=== PATIENT | male | born 1965 | race Caucasian/White ===

== ENCOUNTER 2017-04-07 02:03 | Inpatient (IN) | payer OTHER ==
[~2017-04-07] VITALS: Ht 180.3 cm; Wt 114.8 kg
--- NOTE | 2017-04-07 16:12 | Admission Core Measures ---
Acute Coronary Syndrome (CM) ACS Core Measures Acute Coronary Syndrome Diagnosis No Congestive Heart Failure (NEW) CHF Core Measures Congestive Heart Failure Diagnosis No Cerebrovascular Accident (NEW) CVA Core Measures CVA/TIA Diagnosis No Venous Thromboembolism VTE Core Tye (View Protocol) VTE Risk Factors Surgery No Mechanical VTE Prophylaxis d/t N/A MechProphylax Ordered No VTE Pharm Prophylaxis d/t Bleeding (Active) Problem List As ranked by this Provider includes Assessment & Plan 1. Diverticulitis 2. History of low anterior resection of rectum HOME MEDS Home Med List No Known Home Medications
--- NOTE | 2017-04-07 16:23 | Operative Report ---
Operative/Inv Procedure Report Surgery Date: 04/07/17 Name of Procedure: 1. Laparoscopic low anterior resection 2. Rigid sigmoidoscopic evaluation of anastomotic integrity Pre-Operative Diagnosis: Recurrent diverticulitis of the sigmoid colon Post-Operative Diagnosis: Recurrent diverticulitis of the sigmoid colon Estimated Blood Loss: less than 50ml Surgeon/Documentation Specialist: Gil Jacobs Jr., DO Anesthesia: general endotracheal tube, block Monitors: Per routine Urine Output: Adequate Drains: None Specimens: Rectosigmoid Complications: None Condition: Good Operative Indication: This is a 51-year-old gentleman with a straight recurrent sigmoid diverticulitis. He has had CT confirmation of his disease and he has had colonoscopy which demonstrates the presence of diverticulosis and excludes other major colonic pathology. Operative/Procedure Note Note: On the day before his operation patient did a bowel prep at home including oral antibiotics and oral laxatives. In the morning before his operation he drinks 12 inches of apple juice prior to coming to the hospital per my direction. He presented to [facility] and in the holding area he was given oral and alvimopan. He was taken into the operating room where he received IV antibiotics. He was placed in the supine position on the operating room table he underwent induction of general anesthesia placement of endotracheal tube. A Mclean catheter was placed and the patient then underwent bilateral TAP blocks performed by the anesthesiologist. He was then converted to lithotomy position in the [facility] with his right arm tucked. The abdomen was prepped and draped in usual fashion. We gained access to the abdominal cavity using Griffith technique. Griffith port was placed just above the umbilicus in the midline. Next the abdomen was insufflated to 15 mmHg. Upper scopic expiration of the abdominal cavity was carried out. I could see the diseased segment of sigmoid , was abnormally adherent to the anterior lateral wall on the left. It was hyperemic with thickened mesocolon. Next the other laparoscopic ports were placed under direct visualization of the laparoscope including: A right lower quadrant 12 mm VersaStep dilating port, a suprapubic 5 mm port and a right upper quadrant 5 mm port. Next the patient was placed in Trendelenburg right side down and I began my dissection. I started by dissecting the abnormal adhesions between the sigmoid colon and the anterior lateral sidewall. This was done primarily with electrocautery. I was able to enter a nice clean plane which I continued to dissect until I identified the ureter on the left side. At this point the colon was grasped and pulled anteriorly towards the abdominal wall. I incised the peritoneum at the level sacral promontory to the right of the rectosigmoid. Here I entered the retrorectal avascular space. I continued to bluntly dissect the space until I reached the junction of the upper and middle third of the rectum. Next I dissected in the more medial to lateral direction until I entered my other dissection plane and the ureter was easily visible on the left. At this point I began dividing the mesentery. As this was not colon cancer case I divided the mesentery more distally. The mesentery was divided with the LigaSure. I was able to in visually identify 2 major mesenteric arteries and skeletonize them. After skeletonizing them they were ligated and divided with the LigaSure device. At this point I had adequate mesentery to be above the disease. I took down the white line of Toldt and the retro-colic attachments to Gerota's fascia partly with blunt dissection and partly with the LigaSure until I reached the splenic flexure. I had enough length I did not need to mobilize flexure platelet. I chose my distal site of transection on the rectosigmoid. The mesentery was cleared here using the LigaSure device. I identified the superior hemorrhoidal artery skeletonized and divided with the LigaSure device. Once the rectal wall was completely exposed an Endo MARGUERITE stapler was used to divide the bowel. This was a purple loaded 60 mm stapler. At this point the transected bowel was grasped with a locking grasper. The pneumoperitoneum was let down. The umbilical port was extended to 5 cm. Wound protector was placed through this port. I was able to easily extract the bowel through this fascial defect. I chose my proximal site of transection. The mesentery was cleared here and divided with the LigaSure. Once the wall of the colon was exposed pedicle Was placed across the bowel and the bowel was divided with the scalpel proximal to the clamp. The specimen was removed from the field. The open end of the colon was grasped with Allis clamps and the handsewn pursestring was performed with 2-0 Prolene suture. I chose a 28 EEA stapler for the anastomosis. The anvil of the EEA stapler was placed into the lumen of the bowel and the pursestring was tied snugly around the PEG of the anvil. The bowel was reduced back into the abdominal cavity. The fascia was closed with 0 PDS suture. An additional 5 mm port was placed in the epigastrium and the abdomen was reinsufflated to 15 mmHg. The patient was placed in Trendelenburg swept the small bowel out of the pelvis. The EEA sizers and then the EEA stapler passed transanally. The stapler was in the appropriate position the spike was advanced and the 2 ends of the stapler were laparoscopically mated. The stapler was completely closed and allowed to settle for 30 seconds. The stapler was armed and fired, opened and retrieved. We had 2 excellent donuts on stapling device. Rigid sigmoidoscopy was performed after the pelvis was filled with sterile saline. The bowel insufflated nicely and there was no leaking at the staple line. At this point I noticed a hematoma on the mesial rectum. This was a small hematoma right at the most superior edge of the mesial rectum. For 5 minutes this was observed and was not expanding and there was no active bleeding. Copiously irrigated the pelvis multiple times while observe this hematoma. I believe the mesentery store slightly when when the stapler was passed to the end of the rectal stump. At this point is convinced the hematoma was not expanding so the procedure was concluded. Ports were removed under direct visualization. The lap scopic ports were closed with subcuticular 4-0 Monocryl and then skin glue. The midline extraction port was copiously irrigated with sterile saline. The skin itself was closed with skin sunshine. The abdomen was cleansed and dried and then a dry sterile dressing was applied over the extraction site. The patient was converted back to supine. The patient tolerated the procedure well was taken to recovery area in good condition. At the end this operational needle sponges and instruments were accounted for. Discharge Disposition: Same Day Admissions
--- NOTE | 2017-04-07 17:32 | PN- General Surgery ---
Master Vazquez 04/07/17 1729: Subjective Subjective: POST-OP NOTE No complaints in pacu other than "soreness". Denies nausea. Not yet out of bed. No dizziness. No shortness of breath. No chest pains. Awaiting transfer to gen surg room 237. Objective Vital Signs and I&Os Intake & Output 04/07 1600 04/07 0800 04/07 0000 04/06 1600 04/06 0800 04/06 0000 Intake Total Output Total Balance Patient 255 lb Weight pacu flowsheet reviewed, vss. urine output >500mls in pacu. Physical Exam: General - alert & oriented x 3. comfortable. no acute distress. Lungs - clear bilaterally. no w/r/r. Cardiac - s1s2. reg. Abdomen - soft. incisions covered with skin glue. midline island dressing stained but intact. - kan draining clear, yellow urine. Extremities - warm bilaterally. no c/c/e. calves soft and nontender b/l. athrombics active b/l. Current Medications: Current Medications Sig/Mena Start time Last Medication Dose Route Stop Time Status Admin Alvimopan 12 MG ONCE 04/07 0000 NR PO 04/07 9847 Assessment/Plan Assessment/Plan This 51 year old male with history of recurrent sigmoid diverticulitis is POD#0 s/p laparoscopic low anterior resection, rigid sigmoidoscopic evaluation of anastomotic integrity clears as tolerated. ivf@75/hr pain medications as ordered entereg 12 mg PO q12 until return of bowel function no toradol or heparin sc overnight due to concerns for bleeding kan for strict i/o's overnight, likely to be removed in the morning alps - dvt ppx oob/ambulation f/u labs in am will d/w Core Measures Venous Thromboembolism VTE Risk Factors Surgery No Mechanical VTE Prophylaxis d/t N/A MechProphylax Ordered No VTE Pharm Prophylaxis d/t Bleeding (Active) Pati Barbour 04/07/17 1736: Assessment/Plan Problem List: 1. History of low anterior resection of rectum 2. Diverticulitis
[2017-04-07 18:00] VITALS: BP 148/68
[2017-04-07 22:13] VITALS: BP 150/86
[2017-04-08] VITALS (7 sets, daily range): BP systolic 120–142; BP diastolic 70–80
--- NOTE | 2017-04-08 07:47 | PN- Student ---
See Addendum Jaron Burk 04/08/17 0744: Subjective Subjective: Alfred is a 51yo caucasain male post op day 1 s/p laparoscopic anterior resection. He says he has 6/10 'constant pain.' Patient is not requesting any pain medications beyond IV acetaminophen and says his pain is getting better. He states he has been passing gas, but has not had a BM yet. Pt has kan catheter in place- 50ml of clear yellow urine in bag. IVF (LR) in place. 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 PT denies: H/A, vision changes, SOB, chest pain, nausea/vomitting, muscle pain/ paresthesias or syncope. Objective Objective: GENERAL: Patient lying supine in bed comfortably, in NAD. A+Ox4, pleasant affect. RESP: Good respiratory effort, CTAB. CARDIO: RRR, no MRG, S1/S2 audible. ABD: Island dressing stained with dried blood but is intact. Abd is soft, mildly distended and slightly tender to palpation. Tympanic upon percussion. No bowel sounds audbile throughout. MUSC: 5/5 strength, full ROM. Compression devices in place on LE bilaterally. Nontender, nonedematous. Distal pulses intact. NEURO: Sensation intact throughout. Results Results: Laboratory Tests 04/08/17 0702: Sodium Pending, Potassium Pending, Chloride Pending, Carbon Dioxide Pending, Anion Gap Pending, BUN Pending, Creatinine Pending, BUN/Creatinine Ratio Pending , CBC w Diff Pending, WBC Pending, RBC Pending, Hgb Pending, Hct Pending, MCV Pending, MCH Pending, RDW Pending, Plt Count Pending, MPV Pending, PUBS MCHC Pending Microbiology 04/07 1330 URINE OR: Urine Culture - RES Assessment/Plan Assessment: Alfred is a 51 yo C male POD1 s/p LAR. He is recovering well from the procedure and states his pain is slowly decreasing since the procedure. He is tolerating clear liquids and states he is passing gas although no bowel sounds are audible throughout. PT has no questions or concerns at this time. Plan: Continue clear liquids until bowel sounds audible. Continue entereg 12mg PO until bowel movement. Continue IVF and acetaminophen PRN for pain. Encourage ambulation. D/C kan this am. Change dressing tomorrow. Jayda Wells 04/08/17 1154: Subjective Subjective: pain present, improved w pain meds but "i dont like taking pain meds". no n/v. +flatus, no bm. nelly clears, no appetite. +oob in room. kan out this am, + voids. no cp/sob Objective Objective: ABD: ttp, soft, distended, midline incision dressed- some dried bloody staining, port sites cdi w skin glue, +bs Results Results: Laboratory Tests 04/08/17 0702: Anion Gap 13, Estimated GFR > 60, BUN/Creatinine Ratio 18.6, CBC w Diff NO MAN DIFF REQ, RBC 4.79, MCV 86.7, MCH 29.5, RDW 13.2, MPV 8.9, Gran % 87.1 H, Lymphocytes % 6.1 L, Monocytes % 6.8, Eosinophils % 0, Basophils % 0, Absolute Granulocytes 9.4 H, Absolute Lymphocytes 0.7 L, Absolute Monocytes 0.7 H, Absolute Eosinophils 0, Absolute Basophils 0, PUBS MCHC 34.1 Microbiology 04/07 1330 URINE OR: Urine Culture - RES Assessment/Plan Plan: AP- POD1, stable, awaiting return bowel fxn, -nelly clears, passing gas- HL. ?fulls later today -entereg until bm -prn pain meds -oob, ambulate, alps, hep sq -will dw attending
[2017-04-08 08:37] LABS: ABSOLUTE BASOPHIL COUNT 0 /CUMM (0.0-0.2); ABSOLUTE EOSINOPHIL COUNT 0 /CUMM (0.0-0.7); ABSOLUTE GRANULOCYTE CT 9.4 /CUMM (1.4-6.5); ABSOLUTE LYMPH COUNT 0.7 /CUMM (1.2-3.4); ABSOLUTE MONOCYTE COUNT 0.7 /CUMM (0.10-0.60); BASOPHIL % 0 % (0.0-2.0); EOSINOPHIL % 0 % (0-5); HEMATOCRIT 41.5 % (42-52); MEAN CORPUSCULAR HGB 29.5 PG (27.0-31.0); MEAN CORPUSCULAR HGB CONC 34.1 G/DL (33.0-37.0); MEAN CORPUSCULAR VOLUME 86.7 FL (80.0-94.0); MEAN PLATELET VOLUME 8.9 FL (7.4-10.4); PLATELET COUNT 223 /CUMM (130-400); RBC DISTRIBUTION WIDTH 13.2 % (11.5-14.5); RED BLOOD CELL CT 4.79 /CUMM (4.70-6.10); WHITE BLOOD CELL COUNT 10.8 /CUMM (4.8-10.8)
[2017-04-08 09:30] LABS: GRANULOCYTE % 87.1 % (42.2-75.2)
[2017-04-09 07:00] VITALS: BP 134/76
[2017-04-09 09:16] LABS: ABSOLUTE BASOPHIL COUNT 0 /CUMM (0.0-0.2); ABSOLUTE EOSINOPHIL COUNT 0.1 /CUMM (0.0-0.7); ABSOLUTE GRANULOCYTE CT 6.2 /CUMM (1.4-6.5); ABSOLUTE LYMPH COUNT 0.9 /CUMM (1.2-3.4); ABSOLUTE MONOCYTE COUNT 0.6 /CUMM (0.10-0.60); BASOPHIL % 0.2 % (0.0-2.0); EOSINOPHIL % 0.9 % (0-5); GRANULOCYTE % 78.9 % (42.2-75.2); HEMATOCRIT 40.9 % (42-52); MEAN CORPUSCULAR HGB 29.3 PG (27.0-31.0); MEAN CORPUSCULAR HGB CONC 33.6 G/DL (33.0-37.0); MEAN CORPUSCULAR VOLUME 87.2 FL (80.0-94.0); PLATELET COUNT 186 /CUMM (130-400); RBC DISTRIBUTION WIDTH 13.4 % (11.5-14.5); RED BLOOD CELL CT 4.69 /CUMM (4.70-6.10); WHITE BLOOD CELL COUNT 7.9 /CUMM (4.8-10.8)
--- NOTE | 2017-04-09 09:28 | PN- General Surgery ---
Subjective Subjective: pod#2 s/p lap assist LAR sitting up in chair this am no major issues overnight denies cp, sob, no n+v with clear diet + flatus, dark red blood per rectum(expected) "hungry" Objective Vital Signs and I&Os Vital Signs Date Time Temp Pulse Resp B/P B/P Pulse O2 O2 Flow FiO2 Mean Ox Delivery Rate 04/09 0700 99.9 72 18 134/76 94 Room Air 04/08 2212 98.6 64 18 142/76 95 Room Air 04/08 2200 95 Room Air 04/08 1800 99.2 62 18 120/70 94 Room Air 04/08 1600 97 Room Air 04/08 1445 98.0 68 20 120/72 97 04/08 1148 98.2 69 20 130/80 98 Intake & Output 04/09 1600 04/09 0800 04/09 0000 04/08 1600 04/08 0800 04/08 0000 Intake Total 260 125 372 1065 400 Output Total 769 553 5808 700 Balance -140 160 -30 -650 -300 Intake, IV 20 20 130 600 Intake, Oral 240 140 240 500 400 Output, Stool 100 Output, Urine 887 153 6893 700 Patient 253 lb Weight Weight Reported by Patient Measurement Method Physical Exam: cv: rrr lungs: clear abd: softly distended, +bs expected tenderness to palp wound c/d/i, midline drsg changed ext: warm, no calf tenderness bilat Assessment/Plan Assessment/Plan surgical stable plan f/u am labs advance diet to fulls per dr neha posadas ambulate titrate pain meds Core Measures Venous Thromboembolism VTE Risk Factors Surgery No Mechanical VTE Prophylaxis d/t N/A MechProphylax Ordered No VTE Pharm Prophylaxis d/t Bleeding (Active)
[2017-04-09 13:49] VITALS: BP 120/70
[2017-04-09 22:24] VITALS: BP 124/70
[2017-04-10 07:11] VITALS: BP 112/62
--- NOTE | 2017-04-10 07:25 | PN- General Surgery ---
Subjective Subjective: Pt sitting up in chair, only complains of occasional gas pain, managed with percocet. Tolerating fulls. +BM/flatus. Ambulating. Voiding. Denies N/V, CP, SOB. Denies fever. Objective Vital Signs and I&Os Vital Signs Date Time Temp Pulse Resp B/P B/P Pulse O2 O2 Flow FiO2 Mean Ox Delivery Rate 04/10 0711 98.0 58 20 112/62 97 Room Air 04/09 2224 97.5 63 20 124/70 95 04/09 2200 96 Room Air 04/09 1400 96 Room Air 04/09 1349 97.9 71 14 120/70 94 Room Air 04/09 0800 98 Room Air Intake & Output 04/10 0800 04/10 0000 04/09 1600 04/09 0800 04/09 0000 04/08 1600 Intake Total 320 820 260 160 370 Output Total 350 800 400 400 Balance -30 820 -800 -140 160 -30 Intake, IV 20 20 20 130 Intake, Oral 320 800 240 140 240 Output, Stool 200 100 Output, Urine 350 600 300 400 Physical Exam: gen- NAD, resting comfortably resp- clear cardio-RRR Abd- mildly distended, +BS, nontender. incisions C/D/I ext- warm and dry, no edema Results Last 48 Hours of Labs: Laboratory Tests 04/09 08 Chemistry Sodium (137 - 145 mmol/L) 138 Potassium (3.5 - 5.1 mmol/L) 3.7 Chloride (98 - 107 mmol/L) 99 Carbon Dioxide (22 - 30 mmol/L) 27 Anion Gap (5 - 16) 12 BUN (9 - 20 mg/dL) 15 Creatinine (0.7 - 1.2 mg/dL) 0.8 Estimated GFR (>60 ml/min) > 60 BUN/Creatinine Ratio (7 - 25 %) 18.8 Hematology CBC w Diff NO MAN DIFF REQ WBC (4.8 - 10.8 /CUMM) 7.9 RBC (4.70 - 6.10 /CUMM) 4.69 L Hgb (14.0 - 18.0 G/DL) 13.7 L Hct (42 - 52 %) 40.9 L MCV (80.0 - 94.0 FL) 87.2 MCH (27.0 - 31.0 PG) 29.3 RDW (11.5 - 14.5 %) 13.4 Plt Count (130 - 400 /CUMM) 186 MPV (7.4 - 10.4 FL) 8.0 Gran % (42.2 - 75.2 %) 78.9 H Lymphocytes % (20.5 - 51.1 %) 11.9 L Monocytes % (1.7 - 9.3 %) 8.1 Eosinophils % (0 - 5 %) 0.9 Basophils % (0.0 - 2.0 %) 0.2 Absolute Granulocytes (1.4 - 6.5 /CUMM) 6.2 Absolute Lymphocytes (1.2 - 3.4 /CUMM) 0.9 L Absolute Monocytes (0.10 - 0.60 /CUMM) 0.6 Absolute Eosinophils (0.0 - 0.7 /CUMM) 0.1 Absolute Basophils (0.0 - 0.2 /CUMM) 0 PUBS MCHC (33.0 - 37.0 G/DL) 33.6 Assessment/Plan Assessment/Plan 51yo M SP lap assist LAR POD3 Will advance to low fiber diet, encourage fluids Pain management, Will give script for Percocet, but encourage limiting narcotics OK to shower Encourage ambulation and IS Plan for DC to home today Core Measures Venous Thromboembolism VTE Risk Factors Surgery No Mechanical VTE Prophylaxis d/t N/A MechProphylax Ordered No VTE Pharm Prophylaxis d/t Bleeding (Active)
[2017-04-10] MEDS ORDERED: PERCOCET 5-3251 EACH PO ×2 (07:48→07:51)
--- NOTE | 2017-04-10 07:59 | Patient Discharge Instructions ---
Discharge Instructions General Discharge Information You were seen/treated for: recurrent diverticulitis You had these procedures: colon resection Watch for these problems: fever greater than 101 nausea and vomiting sudden increase in abdominal pain drainage from or redness around wounds Do not soak the wound: Yes No bath, but you may shower: Yes Diet Recommended Diet: Low Residue Activity Activity Self Limited: Yes Pounds, do NOT lift more than: 10 Acute Coronary Syndrome Inclusion Criteria At DC or during hospital stay patient has or had the following: ACS DIAGNOSIS No Discharge Core Measures Meds if any: Prescribed or Continued at Discharge Meds if any: NOT Prescribed or Continued at Discharge Congestive Heart Failure Inclusion Criteria At DC or during hospital stay patient has or had the following: CHF DIAGNOSIS No Discharge Core Measures Meds if any: Prescribed or Continued at Discharge Meds if any: NOT Prescribed or Continued at Discharge Cerebrovascular accident Inclusion Criteria At DC or during hospital stay patient has or had the following: CVA/TIA Diagnosis No Discharge Core Measures Meds if any: Prescribed or Continued at Discharge Meds if any: NOT Prescribed or Continued at Discharge Venous thromboembolism Inclusion Criteria VTE Diagnosis No VTE Type NONE VTE Confirmed by (Test) NONE Discharge Core Measures - Per Current guidelines, there needs to be overlap - treatment for the first 5 days of Warfarin therapy. - If discharged on Warfarin prior to 5 days of - overlap therapy, the patient will need to be - assessed for post discharge needs including - *Post discharge parental anticoagulation - *Warfarin and/or parental anticoagulation education - *Follow up date to check INR post discharge At least 5 days overlap therapy as Inpatient No Meds if any: Prescribed or Continued at Discharge Note: Overlap Therapy is Warfarin and Anticoagulant Meds if any: NOT Prescribed or Continued at Discharge
--- NOTE | 2017-04-10 08:45 | PN- General Surgery ---
Surgical Brief Attending Note Brief Attending Note: Patient was well postop day #3 from lap sigmoid for diverticulitis Pain is well-controlled Tolerating diet and having BM Abdomen is soft nondistended and incisions were clean dry and intact Discharge home today a low fiber diet Please get prescription for pain meds Follow-up in my office for routine postop check and staple removal next week
--- NOTE | 2017-04-10 09:50 | Surgical Discharge Summary ---
See Addendum Visit Information Visit Dates Admission Date: 04/07/17 Discharge Date: 04/10/17 History of Present Illness Chief Complaint: DIVERTICULAR DISEASE Medical History History of MRSA: No History of VRE: No History of CDIFF: No Isolation History: Standard Influenza Vaccine: 01/18/17 Surgical History Pertinent Surgical History: LAR this admission Psychosocial History What is Your Primary Language? Serbian Review of Systems: see H&P Hospital Course Course Attending Physician: Gil Jacobs Jr., DO Primary Care Physician: Gil Quigley MD Hospital Course: 51yoM PMHx diverticulitis presents for elective low anterior resection on with Dr. Jacobs. Procedure went well without listed complications. Diet slowly advanced, and now tolerating a low residue diet. Mclean removed, and voiding without difficutly. Ambulatiin in halls without issue. Pt has had multiple bowel movements and is passing flatus. Pain controlled w po pain meds. Pt seen by attending and cleared for home discharge. Allergies: Coded Allergies: No Known Drug Allergies (NKDA 04/06/17) Significant Procedures: 04/07/17 Laparoscopic low anterior resection, Dr. Jacobs Disposition Summary Disposition Principal Diagnosis: Recurrent diverticulitis of the sigmoid colon Additional Diagnosis: same, s/p Laparoscopic low anterior resection Discharge Disposition: home or self care Discharge Instructions General Discharge Information Code Status: Full Code Patient's Diet: low residue Patient's Activity: as tolerated, no strenuous activity Follow-Up Instructions/Appts: Call to be seen in Dr. Jacobs's office in 1 week for staple removal Medications at Discharge Discharge Medications: Start taking the following new medications: Oxycodone HCl/Acetaminophen (Percocet 5-325 MG Tablet) 5 MG-325 MG TABLET 1-2 Tablet ORAL EVERY 4-6 HOURS NEEDED as needed for pain Qty = 20 No Refills Instructions: .
[2017-04-10 10:31] LABS: ABSOLUTE BASOPHIL COUNT 0 /CUMM (0.0-0.2); ABSOLUTE EOSINOPHIL COUNT 0.2 /CUMM (0.0-0.7); ABSOLUTE LYMPH COUNT 1.6 /CUMM (1.2-3.4); ABSOLUTE MONOCYTE COUNT 0.3 /CUMM (0.10-0.60); BASOPHIL % 0.5 % (0.0-2.0); EOSINOPHIL % 3.5 % (0-5); HEMATOCRIT 39.8 % (42-52); MEAN CORPUSCULAR HGB 29.4 PG (27.0-31.0); MEAN CORPUSCULAR VOLUME 86.7 FL (80.0-94.0); MEAN PLATELET VOLUME 8.4 FL (7.4-10.4); PLATELET COUNT 206 /CUMM (130-400); RBC DISTRIBUTION WIDTH 13.1 % (11.5-14.5); RED BLOOD CELL CT 4.59 /CUMM (4.70-6.10); WHITE BLOOD CELL COUNT 5.2 /CUMM (4.8-10.8)
== END 2017-04-10 11:07 | DRG 331 ==
LOC: SDA 02:03 → ENRESERV 16:10 → ENTRNSPT 17:29 → EDTRNSPTSTS 17:40 → 2NA 17:55 → CMPTRNSPT 18:22 → 2NA 04-10 08:03 → ENPENDDIS 04-10 09:46 → 2NA 04-10 11:07
PROVIDERS: Physician Assistant; Physician Assistant Surgical; Student in an Organized Health Care Education/Training Program
PROC: 0DTN4ZZ Resection of Sigmoid Colon, Percutaneous Endoscopic Approach (ICD-10-PCS; principal; 2017-04-07)
DX: K57.32 Diverticulitis of large intestine without perforation or abscess without bleeding (principal); G47.33 Obstructive sleep apnea (adult) (pediatric)
CPT/HCPCS: 2NAP; 36415; 82436; 87086; 88307; C9399; J0131; J0690; J1644; J2405